=== PATIENT | female | born 1960 | race Caucasian/White ===

== ENCOUNTER 2025-01-13 14:15 | Emergency (ER) | payer OTHER, SELFPAY ==
[2025-01-13 14:26] VITALS: BP 132/68; PULSE 84; RESP 16; TEMP 36.6; O2SAT 98
--- NOTE | 2025-01-13 14:41 | ED_ITS ---
HPI - URI/Sore Throat General Chief Complaint: Upper Respiratory Infection Stated Complaint: Sinus infection Time Seen by Provider: 01/13/25 14:31 Source: patient and RN notes reviewed Mode of arrival: ambulatory Limitations: no limitations History of Present Illness HPI Narrative: Patient presents today complaining of a headache, sinus pain and pressure, nausea. Symptoms began this morning. Denies fever, cough. She has tried ibuprofen without relief. History of rheumatoid arthritis for which she takes Plaquenil and methotrexate. Patient states she typically waits a few days before presenting with cold symptoms to her PCP, but was having too much sinus pain that she wasn't feeling like she could be productive today and wanted to come in for evaluation. States she usually gets a Zpack from her PCP. Related Data Home Medications ?Medication ?Instructions ?Recorded ?Confirmed ?Last Taken ?Type folic acid 1 mg tablet 01/13/25 Unknown History hydroxychloroquine 200 mg tablet mg PO 01/13/25 Unknown History ibandronate 150 mg tablet mg PO 01/13/25 Unknown History methotrexate sodium 2.5 mg tablet mg 01/13/25 Unknown History Allergies Allergy/AdvReac Type Severity Reaction Status Date / Time No Known Allergies Allergy Verified 01/13/25 14:16 Review of Systems Review of Systems: CONSTITUTIONAL: Denies body aches, fever, chills, or sweats. EYES: Denies visual changes, redness, or discharge. ENT: Denies rhinorrhea, congestion, sore throat, or otalgia. + sinus pain pressure CARDIOVASCULAR: Denies chest pain, palpitations, or edema. RESPIRATORY: Denies dyspnea.+ cough GASTROINTESTINAL: Denies abdominal pain, vomiting, or diarrhea.+ nausea GENITOURINARY: Denies dysuria or hematuria. SKIN: Denies rash, itching, or wounds. MUSCULOSKELETAL: Denies back pain, joint pain, or myalgia. NEUROLOGIC: Denies headache, numbness, tingling, or weakness. PSYCH: Denies depression or anxiety. [facility] Past Medical History Medical History (Updated 01/13/25 @ 15:38 by Shawna Avery, [employer], ) Rheumatoid arthritis Comments At time of signature, I have reviewed and agree with nursing past medical, surgical, social and family history unless otherwise noted. Please see nursing chart for further information. There is no relevant family history pertinent to the presenting complaint Exam Narrative: GENERAL: Well-appearing, well-nourished, and in no acute distress. HEAD: Normocephalic, atraumatic. EYES: EOMI. No redness or drainage. Conjunctivae normal. ENT: Mucous membranes pink and moist. Turbinates mildly edematous. No rhinorrhea. TMs normal bilaterally. Throat normal. Uvula midline. Tenderness to the bilateral frontal and maxillary sinuses. NECK: Normal AROM. Supple. No lymphadenopathy. CHEST: No respiratory distress. Clear to auscultation. HEART: Regular rate and rhythm. No murmur appreciated. EXTREMITIES: Normal range of motion. No edema. SKIN: Warm, dry, no rash. Capillary refill normal. Normal skin turgor. NEURO: No focal deficits. Alert and oriented x3. Gait steady. PSYCH: Normal affect. No signs of depression or anxiety. Course Course Level of Care: Express Care Visit Vital Signs Vital signs: Vital Signs Temperature 97.8 F 01/13/25 14:26 Pulse Rate 84 01/13/25 14:26 Respiratory Rate 16 01/13/25 14:26 Blood Pressure 132/68 01/13/25 14:26 Pulse Oximetry 98 01/13/25 14:26 Oxygen Delivery Room Air 01/13/25 14:26 Temperature 97.8 F 01/13/25 14:26 Pulse Rate 84 01/13/25 14:26 Respiratory Rate 16 01/13/25 14:26 Blood Pressure 132/68 01/13/25 14:26 Pulse Oximetry 98 01/13/25 14:26 Oxygen Delivery Room Air 01/13/25 14:26 Reviewed MDM - URI/Sore Throat MDM Narrative Medical decision making narrative: Patient's symptoms just started this morning and it is unlikely that she has a bacterial infection at this time due to duration and physical exam findings. Patient will be started on some Flonase and a Medrol Dosepak for symptom control. Discussed diagnosis at length with patient. Instructed her to follow up with her PCP in 7-10 days if symptoms persist or worsen. Differential Diagnosis Differential diagnosis: Likely upper respiratory infection, sinusitis, viral infection and other (Rhinitis, seasonal allergies) Critical Care Time Critical Care Time Critical Care Time: No Discharge Plan Discharge Clinical Impression: Upper respiratory infection Qualifiers: URI type: unspecified URI Qualified Code(s): J06.9 - Acute upper respiratory infection, unspecified Patient Disposition: Home Condition: Stable Instructions: Upper Respiratory Infection (DC) Additional Instructions: Your symptoms are likely due to a viral illness, which is not treated with antibiotics. Virus symptoms can last for up to 7-10days. Take Tylenol or ibuprofen for pain or fever. Take the Medrol Dosepak and Flonase as directed. Rest and stay hydrated. Follow up with your PCP in 7-10 days if symptoms are not improving. Go to the ER immediately if you develop shortness of breath, difficulty swallowing, or any other concerning symptoms. Your blood pressure was elevated above 120/80 today at Urgent Care. This puts you above the threshold for follow up. Please schedule a followup visit with your personal physician as soon as possible, for further evaluation and treatment. Even blood pressure exceeding 120/80 may indicate pre-hypertension. Patient Language: Slovenian Prescriptions: New methylprednisolone [Medrol (Sadiq)] 4 mg tablets,dose pack See Rx Instructions .ROUTE .COMPLEX Qty: 21 0RF Rx Instructions: orally per package directions fluticasone propionate [Flonase Allergy Relief] 50 mcg/actuation spray,suspension 2 spray intranasal DAILY PRN (Reason: nasal congestion) Qty: 15.8 0RF Rx Instructions: administer into each nostril No Action methotrexate sodium 2.5 mg tablet folic acid 1 mg tablet hydroxychloroquine 200 mg tablet PO ibandronate 150 mg tablet PO Follow-up/Referrals: Albert,Beth Jones MD [Primary Care Provider] - Time of Disposition: 14:43
== END 2025-01-13 14:44 | disposition home or self-care (01) ==
PROVIDERS: Emergency Provider Nurse Practitioner; PCP Family Medicine
DX: J06.9 Acute upper respiratory infection, unspecified (principal); M06.9 Rheumatoid arthritis, unspecified
CPT/HCPCS: 99203; G0463